=== PATIENT | male | born 1990 | race Caucasian/White ===

== ENCOUNTER → 2016-11-08 | Outpatient (CLI) | payer OTHER ==
--- NOTE | 2016-11-08 14:15 | DIAGNOSTIC IMAGING REPORT ---
LEFT WRIST 5 VIEWS HISTORY: Left wrist pain. Fall. COMPARISON: None. FINDINGS: There is no fracture or dislocation. Soft tissues are unremarkable. No radiopaque foreign bodies. IMPRESSION: No fractures. Electronically signed by: Cory Baird M.D. 11/08/2016 2:14 PM Dictated Date/Time: 11/08/2016 2:12 PM
== END | disposition home or self-care (01) ==
LOC: C.RAD1850 13:58
PROVIDERS: ATTEND Preventive Medicine Occupational Medicine
DX: S63.502A Unspecified sprain of left wrist, initial encounter (principal); X58.XXXA Exposure to other specified factors, initial encounter

== ENCOUNTER → 2016-11-15 | Outpatient (CLI) | payer OTHER ==
--- NOTE | 2016-11-15 08:21 | DIAGNOSTIC IMAGING REPORT ---
LEFT WRIST MRI WITHOUT CONTRAST HISTORY: Left wrist pain. WRIST SPRAIN TECHNIQUE: Multiplanar multisequence MRI of the left wrist was performed without the use of contrast. COMPARISON STUDY: Left wrist 11/08/2016. FINDINGS: There is diffuse marrow edema within the scaphoid with a nondisplaced fracture through the scaphoid waist. No evidence for avascular necrosis at this time. No dislocation. Normal marrow signal intensity is seen throughout the remaining visualized osseous structures of the wrist. Trace joint effusion along the radial side of the wrist. The scapholunate ligament, lunotriquetral ligament, and TFCC appear intact. The dorsal and volar ligaments of the wrist are normal in course, caliber, and signal intensity. The median nerve is intact. IMPRESSION: Nondisplaced scaphoid waist fracture. No evidence for avascular necrosis at this time. Electronically signed by: Cory Baird M.D. 11/15/2016 8:20 AM Dictated Date/Time: 11/15/2016 7:59 AM
== END | disposition home or self-care (01) ==
LOC: C.MRI 06:19
PROVIDERS: ATTEND Preventive Medicine Occupational Medicine
DX: S62.025A Nondisplaced fracture of middle third of navicular [scaphoid] bone of left wrist, initial encounter for closed fracture (principal); X58.XXXA Exposure to other specified factors, initial encounter